=== PATIENT | female | born 1960 | race African-American/Black ===

== ENCOUNTER 2022-11-26 15:48 | Emergency (ER) | payer MEDICARE, MEDICAID ==
[~2022-11-26] VITALS: Ht 154.9 cm; Wt 61.0 kg
[2022-11-26 16:23] VITALS: BP 171/100; RESP 18; TEMP 98.8; O2SAT 98
[2022-11-26 16:26] VITALS: PULSE 102
[2022-11-26] MEDS ORDERED: TC025C15 TP (17:41)
[2022-11-26] MEDS ORDERED: DIPH28.33 TP (17:41)
== END 2022-11-26 18:08 | disposition home or self-care (01) ==
LOC: ER 16:15
DX: T63.441A Toxic effect of venom of bees, accidental (unintentional), initial encounter (principal); I10 Essential (primary) hypertension; Z00.00 Encounter for general adult medical examination without abnormal findings; Y92.9 Unspecified place or not applicable
CPT/HCPCS: 99283